=== PATIENT | female | born 1975 | race Two or more races ===

== ENCOUNTER 2017-01-22 13:21 | Emergency (ER) | payer OTHER ==
[~2017-01-22] VITALS: Ht 170.2 cm; Wt 65.8 kg
[~2017-01-22 13:21] MED LIST: FOLI1TAB16 PO; GABA-534 PO; HYDR200T4 PO; MAGN400T6 PO; METH2.5T PO; METH4TAB17 PO; OMEP20CA10 PO; OXCA600T PO; TOPI-67 PO
== END 2017-01-22 14:50 | disposition home or self-care (01) ==
LOC: ER 13:25
DX: M79.671 Pain in right foot (principal); M32.9 Systemic lupus erythematosus, unspecified; Z91.030 Bee allergy status
CPT/HCPCS: 99282; A4606